=== PATIENT | female | born 1935 | race Hispanic/Latino ===

== ENCOUNTER 2018-05-24 18:07 | Emergency (ER) | payer OTHER ==
[2018-05-24] MEDS ORDERED: SUCCINYLCHOLINE 20 MG/ML (10 ML) IV ONE (18:08)
[2018-05-24] MEDS ORDERED: ETOMIDATE 20 MG/10 ML VIAL IV ONE (18:08)
[2018-05-24] MEDS ORDERED: LIDOCAINE 2% MPF 5 ML VIAL IJ ONE (18:08)
[2018-05-24] MEDS ORDERED: RSI MEDICATION KIT IV ONE (18:16)
[2018-05-24] MEDS ORDERED: Nicardipine/NS 25 MG/250 ML KIT IV ONE (18:21)
[2018-05-24] MEDS ORDERED: FOLIC ACID 5 MG/ML VIAL ONE (18:29)
[2018-05-24 18:30] LABS: Absolute Monocytes 0.6 K/uL (0.1-1.3); Absolute Neutrophil 5.9 K/uL (1.8-8.0); Basophils % 0.5 % (0-1.3); Eosinophils % 1.4 % (0-4.4); Hematocrit 35.9 % (36.0-45.0); Lymphocytes % 23.4 % (15.3-44.8); MCH 26.9 pg (27.0-35.0); MCV 83.4 fL (80-100); MPV 8.2 fL (7.6-11.3); Monocytes % 6.9 % (3.3-12.3); RBC Red Blood Cell Count 4.31 M/uL (3.86-4.86)
[2018-05-24] MEDS ORDERED: LORazepam 2 MG/ML VIAL ONE (18:32)
[2018-05-24 18:36] LABS: Protime INR 1.03
--- NOTE | 2018-05-24 18:39 | RAD REPORT ---
EXAM DESCRIPTION: CT - Ct Stroke Brain Wo Cont - 05/24/2018 6:27 pm CLINICAL HISTORY: Confusion and weakness COMPARISON: None. TECHNIQUE: Computed axial tomography of the head was obtained. IV contrast was not requested. All CT scans are performed using dose optimization technique as appropriate and may include automated exposure control or mA/KV adjustment according to patient size. FINDINGS: An approximately 10 centimeter bleed is present within the parenchyma of the right frontal lobe. The right lateral ventricle is compressed. Shift of the midline structures proximally 14 neptali meters is noted. No extra-axial fluid collection is noted. Fluid within the sinuses/ mastoids is not seen. IMPRESSION: 10 centimeter right frontal lobe intraparenchymal bleed with shift of midline structures 14 millimeters to the left. The exam was discussed with Doctor Patiño in the Emergency Room at approximately 6:27 p.m. May 24, 2018
[2018-05-24 18:43] LABS: Potassium 3.8 mmol/L (3.5-5.1)
--- NOTE | 2018-05-24 18:44 | ER ---
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 When we noticed her face was drooping we brought her here.". Transition of care: patient was not received from another setting of care. Onset of symptoms was May 24, 2018. Risk Assessment: Do you want to hurt yourself or someone else? Patient reports no desire to harm self or others. Initial Sepsis Screen: Does the patient meet any 2 criteria? No. Patient's initial sepsis screen is negative. Does the patient have a suspected source of infection? No. Patient's initial sepsis screen is negative. Care prior to arrival: None. 19:06 Method Of Arrival: Wheelchair jl7 Triage Assessment: 18:20 General: Appears distressed, Behavior is unresponsive. Pain: Unable to use pain scale. jl7 Patient is unresponsive. Neuro: Level of Consciousness is unresponsive. Cardiovascular: Heart tones present. Respiratory: Airway is patent Respiratory effort is labored, Respiratory pattern is snoring. Derm: Skin is diaphoretic, Skin is normal, Skin temperature is warm. Historical: - Allergies: 19:11 No Known Allergies; jl7 - Home Meds: 19:11 Carbidopa-Levodopa Oral [Active]; jl7 - PMHx: 19:11 Parkinsons; Hypertension; Pacemaker; jl7 - PSHx: 19:11 CABG; Hysterectomy; ; jl7 - Immunization history:: Adult Immunizations unknown. - Social history:: Smoking status: Patient/guardian denies using tobacco. - Family history:: not pertinent. - Ebola Screening: : No symptoms or risks identified at this time. Screenin:15 Abuse screen: Denies threats or abuse. Denies injuries from another. Nutritional jl7 screening: No deficits noted. Tuberculosis screening: No symptoms or risk factors identified. Fall Risk Total Platt Fall Scale indicates High Risk Score (45 or more points). Fall prevention measures have been instituted. Side Rails Up X 2 Placed Close to Nursing Station Frequent Obs/Assessments Occuring Family Present and informed to notify staff if the need to leave the bedside As available patient and family educated on Fall Prevention Program and Strategies. Assessment: 18:20 General: Pt appears to be posturing, unresponsive with snoring respirations noted, Dr. juan Patiño and ROBERTO Grant at bedside. Pt moved to trauma room 2.. 18:24 Reassessment: Pt to CT via stretcher with NAVID Shen, ROBERTO Grant, and respiratory juan tech. 19:00 Neuro: Level of Consciousness is unresponsive. Cardiovascular: Heart tones S1 S2 aa5 present. Respiratory: Breath sounds are clear bilaterally. 19:00 Derm: Skin is pink, warm \\T\\ dry. aa5 19:00 Reassessment: Pt noted to be moving all extremities, the left side more than the right aa5 side. . 19:31 Reassessment: [facility] at bedside to transport pt. aa5 Vital Signs: 18:11 BP 184 / 95; Pulse 71; Resp 14 S; Pulse Ox 100% on R/A; aa5 18:16 BP 206 / 100; Pulse 77; Resp 18 S; Pulse Ox 100% on ETT ambu; aa5 18:20 Temp 97.4(TE); aa5 18:25 BP 223 / 102; Pulse 77; Resp 16 A; Pulse Ox 100% on ETT vent; aa5 18:30 BP 180 / 91; Pulse 64; Resp 16 A; Pulse Ox 100% on ETT vent; aa5 18:35 BP 165 / 71; Pulse 67; Resp 16 A; Pulse Ox 100% on ETT vent; aa5 18:40 BP 147 / 60; Pulse 70; Resp 16 A; Pulse Ox 100% on ETT vent; aa5 18:45 BP 120 / 54; Pulse 71; Resp 16 A; Pulse Ox 100% on ETT vent; aa5 18:50 BP 115 / 60; Pulse 68; Resp 16 A; Pulse Ox 100% on ETT vent; aa5 19:00 BP 120 / 65; Pulse 77; Resp 16 A; Pulse Ox 100% on ETT vent; aa5 19:10 BP 135 / 73; Pulse 77; Resp 16 A; Pulse Ox 100% on ETT vent; aa5 19:15 BP 165 / 83; Pulse 74; Resp 16 A; Pulse Ox 100% on ETT vent; aa5 19:20 BP 178 / 81; Pulse 74; Resp 16 A; Pulse Ox 100% on ETT vent; aa5 19:25 BP 190 / 81; Pulse 74; Resp 16 A; Pulse Ox 100% on ETT vent; aa5 19:30 BP 168 / 73; Pulse 74; Resp 16 A; Pulse Ox 100% on ETT vent; aa5 NIH Stroke Scale Scores: 18:37 NIHSS Score: 30 [facility] ED Course: 18:10 Patient arrived in ED. aa5 18:12 Inserted saline lock: 18 gauge in right forearm, using aseptic technique. IV inserted aa5 by NAVID Shen. 18:15 Triage completed. aa5 18:16 Assisted provider with intubation using 7.5 mm ETT via oral route. ET tube secured at aa5 23cm at the teeth. Intubated by Abel MEJIA Placement verified by CO2 detector w/ + color change, auscultating bilateral breath sounds, Patient tolerated well. 18:20 Arm band placed on right wrist. jl7 18:23 Miguel Patiño MD is Attending Physician. [facility] 18:27 CT Stroke Brain w/o Contrast In Process Unspecified. EDMS 18:28 Inserted saline lock: 22 gauge in left forearm, using aseptic technique. IV inserted by dustin Shen RN. 18:31 X-ray completed. Portable x-ray completed in exam room. Patient tolerated procedure kc2 well. 18:32 Stroke CXR 1 View In Process Unspecified. EDMS 18:35 NGT: inserted 12 Fr. via left nare. verified placement of air over stomach, Patient aa5 tolerated well. 18:35 Assisted provider with central line placement. Set up central line tray. Triple lumen aa5 line placed in right femoral. Line placed by Abel MEJIA Dressed with Tegaderm. 18:42 Uribe cath inserted, using sterile technique, 16 Fr., by de, balloon inflated, to mt gravity drainage. 18:47 Abel Sexton PA is PHCP. jr8 19:05 Hermelinda Collins RN is Primary Nurse. jl7 19:15 Patient has correct armband on for positive identification. Placed in gown. Bed in low jl7 position. Call light in reach. Side rails up X2. media monitor on. Pulse ox on. NIBP on. Warm blanket given. 19:40 Patient transferred, IV remains in place. aa5 Administered Medications: 18:13 Drug: Lidocaine 50 mg Route: IVP; Site: right forearm; aa5 18:20 Follow up: Response: No adverse reaction aa5 18:15 Drug: Etomidate 20 mg Route: IVP; Site: right forearm; aa5 18:20 Follow up: Response: No adverse reaction aa5 18:16 Drug: Succinylcholine 60 mg Route: IVP; Site: right forearm; aa5 18:20 Follow up: Response: No adverse reaction aa5 18:28 Drug: Fosphenytoin 1 grams Route: IVPB; Site: left forearm; aa5 18:43 Follow up: Response: No adverse reaction; IV Status: Completed infusion aa5 18:28 Drug: foLIC Acid 1 mg Route: IVPB; Site: left forearm; aa5 18:28 Drug: Ativan 2 mg Route: IVP; Site: right forearm; aa5 18:35 Follow up: Response: No adverse reaction aa5 18:28 Drug: Cardene 25 mg Route: IV; Rate: calculated rate; Site: left forearm; aa5 18:40 Follow up: Decreased to 2.5mg/hr per PA VO aa5 18:45 Follow up: Stopped infusion at 1845 per PA VO aa5 19:25 Follow up: Restarted infusion at 1925 at 2.5mg/hr aa5 Point of Care Testing: Blood Glucose: 18:20 Blood Glucose: 148 mg/dL; jl7 Ranges: Intake: Outcome: 18:43 ER care complete, transfer ordered by MD. addison 19:40 Transferred by helicopter to [facility], Transfer form completed. aa5 X-rays sent w/ patient. Note: Report given to Chris (Flight nurse) and report given to NAVID Stanton at [facility]. 19:40 Condition: stable 19:40 Discharge instructions given to Pt's daughter (Mone) Instructed on the need for transfer, Demonstrated understanding of instructions. 19:43 Patient left the ED. aa5 NIH Stroke Scale - NIH Stroke Score Date: 05/24/2018 Time: 18:37 Total Score = 30 1a. Level of Consciousness (LOC) - 3(Unresponsive) 1b. Level of Consciousness (LOC) (Year \\T\\ Age) - 2(Neither) 1c. LOC Commands (Open \\T\\ Closes Eyes/Bead Maker) - 2(Neither) 2. Best Gaze (Lateral Gaze Paresis) - 2(Forced deviation) 3. Visual Field Loss - 2(Complete hemianopia) 4. Facial Palsy - 2(Partial paralysis) 5a. Left Arm: Motor (10-second hold) - 4(No movement) 5b. Right Arm: Motor (10-second hold) - 0(No drift) 6a. Left Leg: Motor (5-second hold - always test supine) - 4(No movement) 6b. Right Leg: Motor (5-second hold - always test supine) - 0(No drift) 7. Limb Ataxia (finger/nose \\T\\ heel/garcia - test with eyes open) - 2(Present in two limbs) 8. Sensory Loss (pinprick arms/legs/face) - 2(Severe to total loss) 9. Best Language: Aphasia (description/naming/reading) - 3(Mute, global aphasia) 10. Dysarthria (speech clarity - read or repeat words) - 9(Intubated) - Notes: airway not protected 11. Extinction and Inattention (visual/tactile/auditory/spatial/personal) - 2(Profound) Initials: cyn Signatures: Dispatcher [employer] EDTrudy Delgado, Miguel Hardy RN, MD MD cha Calderon, Audri, RN RN dede5 Abel Sexton PA PA jr8 Carr, Kelsie kc2 Hermelinda Collins RN RN jl7 Thompson, Moriah ct Corrections: (The following items were deleted from the chart) 20:00 18:25 Inserted saline lock: 18 gauge in right antecubital area, using aseptic aa5 technique. 20:00 18:30 Inserted saline lock: 22 gauge in left forearm, using aseptic technique. dustin martinez 20:12 18:14 Patient arrived in ED. chris chan 20:12 19:08 Triage completed. 20:12 19:06 Acuity: CHULA 1 Casey aguayo
--- NOTE | 2018-05-24 18:44 | EDPHYS ---
Physician Documentation [facility] Name: Luiza Sainz Age: 83 yrs Sex: Female : 1935 Arrival Date: 05/24/2018 Time: 18:14 Bed 2 Private MD: ED Physician Miguel Patiño HPI: 05/24 18:25 This 83 yrs old Female presents to ER via Unassigned with complaints of cyn unresponsive, flacid left side, right upperward gaze. 18:25 The patient's problem is reported as altered mental status, obtunded, a facial droop, cyn on left. The patient's problem is reported as weakness, in the left upper extremity, in the left lower extremity, in the left side of face. Onset: The symptoms/episode began/occurred just prior to arrival. Duration: The episode is continuous. Context: the episode(s) was witnessed, by family. The symptoms are alleviated by nothing. The symptoms are aggravated by nothing. Possible causes: CVA or TIA. 18:34 The patient presents with decreased mental status. The patient presents to the [facility] emergency department with weakness of the left upper extremity, left lower extremity, left side of the face, that is severe, complete paralysis, a speech or higher order brain function problem, aphasia, difficulty standing, the patient cannot stand, difficult walking, the patient cannot walk. Historical: - Allergies: 19:11 No Known Allergies; jl7 - Home Meds: 19:11 Carbidopa-Levodopa Oral [Active]; jl7 - PMHx: 19:11 Parkinsons; Hypertension; Pacemaker; jl7 - PSHx: 19:11 CABG; Hysterectomy; ; jl7 - Immunization history:: Adult Immunizations unknown. - Social history:: Smoking status: Patient/guardian denies using tobacco. - Family history:: not pertinent. - Ebola Screening: : No symptoms or risks identified at this time. ROS: 18:25 Constitutional: Negative for fever, chills, and weight loss, ENT: Negative for injury, cyn pain, and discharge, Neck: Negative for injury, pain, and swelling, Cardiovascular: Negative for chest pain, palpitations, and edema, Respiratory: Negative for shortness of breath, cough, wheezing, and pleuritic chest pain, Abdomen/GI: Negative for abdominal pain, nausea, vomiting, diarrhea, and constipation, Back: Negative for injury and pain, : Negative for injury, bleeding, discharge, and swelling, MS/Extremity: Negative for injury and deformity, Skin: Negative for injury, rash, and discoloration, Allergy/Immunology: Negative for hives, rash, and allergies, Endocrine: Negative for neck swelling, polydipsia, polyuria, polyphagia, and marked weight changes. 18:25 Eyes: Positive for visual disturbance. 18:25 Neuro: Positive for altered mental status, syncope, weakness, of the left arm and left leg. Exam: 18:25 Radiologist reports: 10 cm right frontal lobe hemorrhage, 14 mm right to left shift cyn 18:25 Constitutional: The patient appears in obvious distress, severely distressed. 18:25 Head/face: Exam is negative for 18:25 Eyes: Pupils: up and fixed right. 18:25 Neck: Exam negative for 18:25 Neck: Exam negative for 18:25 Chest/axilla: Exam negative for 18:25 Cardiovascular: Exam negative for 18:25 Abdomen/GI: Exam negative for 18:25 Musculoskeletal/extremity: ROM: flaccid left arm and leg. 18:25 Neuro: Orientation: unable to test, Mentation: confused, Motor: flaccid left arm and leg, Gait: not tested. seizure activity, is not displayed by the patient. Vital Signs: 18:11 BP 184 / 95; Pulse 71; Resp 14 S; Pulse Ox 100% on R/A; aa5 18:16 BP 206 / 100; Pulse 77; Resp 18 S; Pulse Ox 100% on ETT ambu; aa5 18:20 Temp 97.4(TE); aa5 18:25 BP 223 / 102; Pulse 77; Resp 16 A; Pulse Ox 100% on ETT vent; aa5 18:30 BP 180 / 91; Pulse 64; Resp 16 A; Pulse Ox 100% on ETT vent; aa5 18:35 BP 165 / 71; Pulse 67; Resp 16 A; Pulse Ox 100% on ETT vent; aa5 18:40 BP 147 / 60; Pulse 70; Resp 16 A; Pulse Ox 100% on ETT vent; aa5 18:45 BP 120 / 54; Pulse 71; Resp 16 A; Pulse Ox 100% on ETT vent; aa5 18:50 BP 115 / 60; Pulse 68; Resp 16 A; Pulse Ox 100% on ETT vent; aa5 19:00 BP 120 / 65; Pulse 77; Resp 16 A; Pulse Ox 100% on ETT vent; aa5 19:10 BP 135 / 73; Pulse 77; Resp 16 A; Pulse Ox 100% on ETT vent; aa5 19:15 BP 165 / 83; Pulse 74; Resp 16 A; Pulse Ox 100% on ETT vent; aa5 19:20 BP 178 / 81; Pulse 74; Resp 16 A; Pulse Ox 100% on ETT vent; aa5 19:25 BP 190 / 81; Pulse 74; Resp 16 A; Pulse Ox 100% on ETT vent; aa5 19:30 BP 168 / 73; Pulse 74; Resp 16 A; Pulse Ox 100% on ETT vent; aa5 NIH Stroke Scale Scores: 18:37 NIHSS Score: 30 [facility] Procedures: 18:47 Intubation: Ventilated with 100% NRB prior to procedure. O2 saturation prior to jr8 procedure was 100 %. Intubated orally using # 4 Meño blade with 7.5 mm ETT. was successful on first attempt. Ventilated with Ambu bag. ventilator. Cricoid pressure applied during procedure. Tube secured with ETT oden at center of mouth measured 23 cm at teeth. Placement verified by CXR, CO2 detector with (+) color change, auscultating bilateral breath sounds, O2 saturation after procedure was 100 %. Patient tolerated well. Central Line: the site was prepped with Betadine, in sterile fashion, a triple lumen catheter was inserted, in the right femoral vein, in 1 attempts. placement was verified, by blood return, the site was dressed with 4X4s, Tegaderm, foam tape, using sterile technique, the patient tolerated the procedure, well. MDM: 18:23 Patient medically screened. [facility] 18:36 Data reviewed: vital signs, nurses notes, lab test result(s), EKG, radiologic studies, [facility] CT scan, plain films. 18:47 Data interpreted: Pulse oximetry: on ventilator is 100 %. Interpretation: normal. jr8 Counseling: I had a detailed discussion with the patient and/or guardian regarding: the historical points, exam findings, and any diagnostic results supporting the discharge/admit diagnosis, lab results, radiology results, the need to transfer to another facility, for higher level of care, [facility] does not immediately have the required specialist. 05/24 18:21 Order name: Basic Metabolic Panel; Complete Time: 18:51 05/24 18:21 Order name: CBC with Diff; Complete Time: 18:51 05/24 18:21 Order name: Protime (+inr); Complete Time: 18:51 05/24 18:21 Order name: Ptt, Activated; Complete Time: 18:51 05/24 19:27 Order name: ABG; Complete Time: 19:34 [facility] 05/24 18:18 Order name: CT Stroke Brain w/o Contrast; Complete Time: 18:51 05/24 18:21 Order name: Stroke CXR 1 View; Complete Time: 19:10 05/24 19:38 Order name: Urine Dipstick--Ancillary (enter results) [facility] 05/24 18:21 Order name: EKG; Complete Time: 18:21 05/24 18:21 Order name: Accucheck; Complete Time: 18:24 05/24 18:21 Order name: Cardiac monitoring; Complete Time: 18:24 05/24 18:21 Order name: EKG - Nurse/Tech; Complete Time: 18:24 05/24 18:21 Order name: IV Saline Lock; Complete Time: 19:20 05/24 18:21 Order name: Labs collected and sent; Complete Time: 19:20 05/24 18:21 Order name: NPO; Complete Time: 18:24 05/24 18:21 Order name: O2 Per Protocol; Complete Time: 18:24 05/24 18:21 Order name: O2 Sat Monitoring; Complete Time: 18:24 05/24 18:21 Order name: Stroke Swallow Screen; Complete Time: 19:06 05/24 18:21 Order name: Urine Dipstick-Ancillary (obtain specimen); Complete Time: 19:41 05/24 18:25 Order name: Uribe; Complete Time: 19:05 cyn Administered Medications: 18:13 Drug: Lidocaine 50 mg Route: IVP; Site: right forearm; aa5 18:20 Follow up: Response: No adverse reaction aa5 18:15 Drug: Etomidate 20 mg Route: IVP; Site: right forearm; aa5 18:20 Follow up: Response: No adverse reaction aa5 18:16 Drug: Succinylcholine 60 mg Route: IVP; Site: right forearm; aa5 18:20 Follow up: Response: No adverse reaction aa5 18:28 Drug: Fosphenytoin 1 grams Route: IVPB; Site: left forearm; aa5 18:43 Follow up: Response: No adverse reaction; IV Status: Completed infusion aa5 18:28 Drug: foLIC Acid 1 mg Route: IVPB; Site: left forearm; aa5 18:28 Drug: Ativan 2 mg Route: IVP; Site: right forearm; aa5 18:35 Follow up: Response: No adverse reaction aa5 18:28 Drug: Cardene 25 mg Route: IV; Rate: calculated rate; Site: left forearm; aa5 18:40 Follow up: Decreased to 2.5mg/hr per PA VO aa5 18:45 Follow up: Stopped infusion at 1845 per PA VO aa5 19:25 Follow up: Restarted infusion at 1925 at 2.5mg/hr aa5 Point of Care Testing: Blood Glucose: 18:20 Blood Glucose: 148 mg/dL; jl7 Ranges: Critical Glucose Levels:Adult <50 mg/dl or >400 mg/dl <40 mg/dl or >180 mg/dl Disposition: 05/25 06:51 Co-signature as Attending Physician, Miguel Patiño MD I agree with the assessment and cyn plan of care. Disposition: 05/24/18 18:43 Transfer ordered to [facility]. 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 - Reason for transfer: Higher level of care. - Accepting physician is dr camilo. - Condition is Critical. - Problem is new. - Symptoms are unchanged. Critical care time excluding procedures: 05/24 18:47 Critical care time: Bedside Care: 20 minutes, Consultation: 10 minutes, Family jr8 Intervention: 10 minutes. Total time: 40 minutes NIH Stroke Scale - NIH Stroke Score Date: 05/24/2018 Time: 18:37 Total Score = 30 1a. Level of Consciousness (LOC) - 3(Unresponsive) 1b. Level of Consciousness (LOC) (Year \T\ Age) - 2(Neither) 1c. LOC Commands (Open \T\ Closes Eyes/Immigration Case Worker) - 2(Neither) 2. Best Gaze (Lateral Gaze Paresis) - 2(Forced deviation) 3. Visual Field Loss - 2(Complete hemianopia) 4. Facial Palsy - 2(Partial paralysis) 5a. Left Arm: Motor (10-second hold) - 4(No movement) 5b. Right Arm: Motor (10-second hold) - 0(No drift) 6a. Left Leg: Motor (5-second hold - always test supine) - 4(No movement) 6b. Right Leg: Motor (5-second hold - always test supine) - 0(No drift) 7. Limb Ataxia (finger/nose \T\ heel/garcia - test with eyes open) - 2(Present in two limbs) 8. Sensory Loss (pinprick arms/legs/face) - 2(Severe to total loss) 9. Best Language: Aphasia (description/naming/reading) - 3(Mute, global aphasia) 10. Dysarthria (speech clarity - read or repeat words) - 9(Intubated) - Notes: airway not protected 11. Extinction and Inattention (visual/tactile/auditory/spatial/personal) - 2(Profound) Initials: cyn Signatures: Dispatcher [employer] EDMiguel Horvath MD MD cha Martinez, Eric em1 Bridget Blanc, RN RN aa5 Abel Sexton PA PA jr8 Cherry Harris RN RN ph Hermelinda Collins RN RN jl7 Corrections: (The following items were deleted from the chart) 19:43 18:43 05/24/2018 18:43 Transfer ordered to [facility]. 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 Reason for transfer: Higher level of care. Accepting physician is dr camilo. Condition is Critical. Problem is new. Symptoms are unchanged. cyn
[2018-05-24] MEDS ORDERED: FOSPHENYTOIN PE 1,000 MG in NA CHLORIDE 0.9% 100 ML IV ONE (19:00)
--- NOTE | 2018-05-24 19:00 | RAD REPORT ---
EXAM DESCRIPTION: RAD - Chest Single View - 05/24/2018 6:32 pm CLINICAL HISTORY: Code stroke, intracranial hemorrhage COMPARISON: None. TECHNIQUE: AP portable chest image was obtained 1830 hours . FINDINGS: Endotracheal tube is in place with the tip mid aortic arch. This is well above the marla. Left subclavian pacemaker is in place. Chronic interstitial lung disease is evident. No pulmonary ed dustin or focal consolidation. Heart size is normal with no abnormal vascular engorgement. No measurable pleural effusion and no pneumothorax. No gross bony abnormality seen. No acute aortic findings suspe cted. IMPRESSION: No pulmonary edema or significant acute lung parenchymal disease. ET tube in good position.
[2018-05-24 19:30] LABS: Arterial Blood Carboxyhemoglob 0.8 % (0-1.5); Blood Gas Oxyhemoglobin 98.1 % (94-97); Blood O2 Saturation 99.8 % (92-98.5)
[2018-05-24 21:55] LABS: Urine Blood 2+ (NEG); Urine Glucose NEGATIVE (NEG); Urine Protein NEGATIVE (NEG); Urine pH 5.5 (5.0-7.0)
--- NOTE | 2018-05-25 06:55 | EKG ---
Test Date: 2018-05-24 Test Time: 19:00:26 Colorer Machine: TONY MEASUREMENT RESULTS: Intervals: Rate: 73 CT: 156 QRSD: 140 QT: 428 QTc: 471 [place]: P: 2 CT: 156 QRS: 263 T: 24 INTERPRETIVE STATEMENTS: Sinus rhythm with premature atrial complexes Right bundle branch block Abnormal ECG No previous ECG available for comparison Electronically Signed On 05-25-18 06:54:25 CDT by Yamil Dozier
== END 2018-05-24 19:43 | disposition short-term general hospital (02) ==
LOC: ER 18:07
PROC: 0BH17EZ Insertion of Endotracheal Airway into Trachea, Via Natural or Artificial Opening (ICD-10-PCS; principal; 2018-05-24)
PROC: 5A1935Z Respiratory Ventilation, Less than 24 Consecutive Hours (ICD-10-PCS; 2018-05-24)
PROC: 06HM33Z Insertion of Infusion Device into Right Femoral Vein, Percutaneous Approach (ICD-10-PCS; 2018-05-24)
DX: I61.9 Nontraumatic intracerebral hemorrhage, unspecified (principal); I69.159 Hemiplegia and hemiparesis following nontraumatic intracerebral hemorrhage affecting unspecified side; I10 Essential (primary) hypertension; R29.730 NIHSS score 30; G20 Parkinson's disease; Z95.1 Presence of aortocoronary bypass graft; Z95.0 Presence of cardiac pacemaker
CPT/HCPCS: 31500; 36415; 36556; 70450; 71045; 80048; 81003; 82805; 85025; 85610; 85730; 94002; Q2009; 51702; 82962; 93005; 99291; J0330